=== PATIENT | female | born 1980 | race Asian ===

== ENCOUNTER 2018-10-20 18:06 | Emergency (ER) | END 2018-10-20 22:36 | disposition home or self-care (01) ==

== ENCOUNTER 2018-10-21 13:38 | Day surgery (SDC) | END 2018-10-21 18:55 | disposition home or self-care (01) ==

== ENCOUNTER 2019-02-25 09:09 | Emergency (ER) | payer BC ==
[~2019-02-25] VITALS: Ht 154.9 cm; Wt 68.0 kg
[~2019-02-25 09:09] MED LIST: FER325 PO; FOLI-49 PO; PREN-47 PO
[2019-02-25 09:12] VITALS: BP 114/68; PULSE 78; RESP 18; Ht 154.9 cm; Wt 68.0 kg
[2019-02-25] MEDS ORDERED: KETOROLAC 30 MG INJ IV STA (10:24)
[2019-02-25] MEDS ORDERED: CEPH-443 PO (11:51)
[2019-02-25] MEDS ORDERED: IBUP-1542 PO (11:51)
[2019-02-25] MEDS ORDERED: MAGN400O19 PO (11:51)
[2019-02-25] MEDS ORDERED: MEDR10TA2 PO (11:51)
--- NOTE | 2019-02-25 11:55 | ERD ---
ER Documentation Chief Complaint Chief Complaint pt is bib family with c/o pelvic pain 7 months post , sent by PMD HPI 38-year-old female presents with intermittent pelvic pain for the last 6 months. Ostomy 6 months ago she had a D&C for a failed . Since that time she has not had her menstrual period. She has intermittent sharp pain every few weeks. She denies fevers, vomiting. She also has mild dysuria and co nstipation. She denies vaginal discharge or bleeding. ROS All systems reviewed and are negative except as per history of present illness. Medications Home Meds Active Scripts Magnesium Hydroxide* (Milk Of Magnesia*) 400 Mg/5 Ml Oral.susp, 30 ML PO BID for 14 Days, ML Prov:LAURA ST MD 02/25/19 Cephalexin* (Keflex*) 500 Mg Capsule, 500 MG PO QID for 5 Days, CAP Prov:LAURA ST MD 02/25/19 Ibuprofen* (Motrin*) 600 Mg Tab, 600 MG PO Q6H PRN for PAIN, #20 TAB Prov:LAURA ST MD 02/25/19 Medroxyprogesterone Acetate* (Provera*) 10 Mg Tablet, 10 MG PO DAILY for 5 Days, #5 TAB Prov:LAURA ST MD 02/25/19 Reported Medications Folic Acid* (Folic Acid*) 1 Mg Tablet, 1 MG PO DAILY, TAB 10/21/18 Ferrous Sulfate* (Ferrous Sulfate*) 325 Mg Tabec, 325 MG PO DAILY, TAB 10/21/18 Qef09-Hvsa-Fyqta Acid ([place] Chewable) 1 Each Tab.chew, 1 TAB PO DAILY, TAB.CHEW 10/21/18 Allergies Allergies: Coded Allergies: No Known Allergy (Unverified , 10/21/18) PMhx/Soc History of Surgery: Yes (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, rt thigh tumor remove) Anesthesia Reaction: No Hx Neurological Disorder: No Hx Respiratory Disorders: No Hx Cardiac Disorders: No Hx Psychiatric Problems: No Hx Miscellaneous Medical Probl: No Hx Alcohol Use: Yes (OCCASSIONAL) Hx Substance Use: No Hx Tobacco Use: No FmHx Family History: No diabetes, No coronary disease, No other Physical Exam Vitals Vital Signs Date Temp Pulse Resp B/P (MAP) Pulse Ox O2 O2 Flow FiO2 Time Delivery Rate 02/25/19 98.3 78 18 114/68 98 09:12 (83) Physical Exam Const: No acute distress Head: Atraumatic Eyes: Normal Conjunctiva ENT: Normal External Ears, Nose and Mouth. Neck: Full range of motion. No meningismus. Resp: Clear to auscultation bilaterally Cardio: Regular rate and rhythm, no murmurs Abd: Soft, mild suprapubic tenderness. Nontender McBurney's point no Posadas sign. Non distended. Normal bowel sounds Skin: No petechiae or rashes Back: No midline or flank tenderness Ext: No cyanosis, or edema Neur: Awake and alert Psych: Normal Mood and Affect Result Diagram: 02/25/19 1039 02/25/19 1039 Results 24 hrs Laboratory Tests Test 02/25/19 10:39 02/25/19 10:44 White Blood Count 7.2 10^3/ul Red Blood Count 4.71 10^6/ul Hemoglobin 13.9 g/dl Hematocrit 42.3 % Mean Corpuscular Volume 89.8 fl Mean Corpuscular Hemoglobin 29.5 pg Mean Corpuscular Hemoglobin Concent 32.9 g/dl Red Cell Distribution Width 11.9 % Platelet Count 261 10^3/UL Mean Platelet Volume 11.2 fl Immature Granulocytes % 0.400 % Neutrophils % 62.3 % Lymphocytes % 24.9 % Monocytes % 8.9 % Eosinophils % 2.9 % Basophils % 0.6 % Nucleated Red Blood Cells % 0.0 /100WBC Immature Granulocytes # 0.030 10^3/ul Neutrophils # 4.5 10^3/ul Lymphocytes # 1.8 10^3/ul Monocytes # 0.6 10^3/ul Eosinophils # 0.2 10^3/ul Basophils # 0.0 10^3/ul Nucleated Red Blood Cells # 0.0 10^3/ul Urine Color YELLOW Urine Clarity CLEAR Urine pH 6.0 Urine Specific [place] 1.023 Urine Ketones NEGATIVE mg/dL Urine Nitrite NEGATIVE mg/dL Urine Bilirubin NEGATIVE mg/dL Urine Urobilinogen NEGATIVE mg/dL Urine Leukocyte Esterase TRACE René/ul Urine Microscopic RBC 1 /HPF Urine Microscopic WBC 2 /HPF Urine Hemoglobin NEGATIVE mg/dL Urine Glucose NEGATIVE mg/dL Urine Total Protein NEGATIVE mg/dl Sodium Level 143 mmol/L Potassium Level 4.1 mmol/L Chloride Level 104 mmol/L Carbon Dioxide Level 29 mmol/L Anion Gap 10 Blood Urea Nitrogen 16 mg/dl Creatinine 0.66 mg/dl Est Glomerular Filtrat Rate mL/min > 60 mL/min Glucose Level 86 mg/dl Calcium Level 9.7 mg/dl Total Bilirubin 0.7 mg/dl Direct Bilirubin 0.00 mg/dl Indirect Bilirubin 0.7 mg/dl Aspartate Amino Transf (AST/SGOT) 23 IU/L Alanine Aminotransferase (ALT/SGPT) 17 IU/L Alkaline Phosphatase 69 IU/L Total Protein 8.7 g/dl Albumin 5.0 g/dl Globulin 3.70 g/dl Albumin/Globulin Ratio 1.35 Lipase 190 U/L POC Beta HCG, Qualitative NEGATIVE Current Medications Medications Dose Sig/Betsy Start Time Status Last (Trade) Ordered Route PRN Stop Time Admin Dose Reason Admin Ketorolac 30 mg ONCE STAT 02/25/19 DC 02/25/19 Tromethamine IV 10:24 10:50 (Toradol) 02/25/19 10:25 Procedures/MDM Patient presents with intermittent pelvic pain and amenorrhea 6 months status post dilatation and curettage. She has no current signs of rebound tenderness, appendicitis, Posadas sign. Pelvic ultrasound read as normal. HCG is negative. Urine shows mild signs of infection. CBC and CMP normal. Patient given Toradol 30 mill grams IV. Patient has benign abdomen on serial exam. With the assistance of a commissary production supervisor results were given to patient. Patient has no signs of acute surgical abdomen, sepsis, ovarian torsion, PID, tubo-ovarian abscess, additional complications. We will treat empirically given amenorrhea with a short course of Provera, Keflex for UTI, ibuprofen for pain, milk of magnesia for constipation, with recommendations for continued primary care and [employer]CTION[employer]NALYST follow-up and return precautions for fevers, vomiting, worsening pain, new worsening symptoms. The patient was stable with no new complaints during the ER course. Clinically, there is no current evidence to suggest meningitis, sepsis, acute abdomen, pneumonia, stroke, acute coronary syndrome, pulmonary embolism, aortic dissection or any other emergent condition appearing to require further evaluation or hospitalization. Patient counseled regarding my diagnostic impression and care plan. Prior to discharge all questions answered. Pt agrees with treatment plan and understands strict return precautions. Pt is instructed to follow up with primary care provider within 24-48 hours. Precautionary instructions provided including instructions to return to the ER if not improving or for any worsening or changing symptoms or concerns. Departure Diagnosis: Primary Impression: Acute pain in female pelvis Condition: Stable Patient Instructions: Pelvic Pain, Unknown Cause Referrals: NO PRIMARY,CARE PHYSICIAN (PCP) Additional Instructions: Follow-up with primary doctor for further evaluation and treatment. Recheck for fevers, vomiting, new worsening symptoms. LAURA ST MD Feb 25, 2019 11:54
== END 2019-02-25 12:10 | disposition home or self-care (01) ==
LOC: FTE 09:09
DX: R10.2 Pelvic and perineal pain (principal)
CPT/HCPCS: 36415; 76830; 76856; 80053; 81001; 81025; 83690; 85025; 96374; J1885; Z7502